=== PATIENT | male | born 1980 | race Caucasian/White ===

== ENCOUNTER 2016-10-15 13:49 | Inpatient (IN) | payer OTHER ==
[~2016-10-15] VITALS: Ht 165.1 cm; Wt 72.6 kg
--- NOTE | 2016-10-15 23:10 | NUR ---
Pre-Admission Note: Patient assessed in intake office at 23:10 on 10/15/2016. Patient is ambulatory with steady gait, stable, A&OX4, speech is clear. Patient states that he is here to safely detox from ETOH. Pt reports drinking on a daily basis for over one year, and for the past 3 months has been drinking 12-16 beers daily. Patient states that last drink was 8 beers on 10/14/16. VS: 179/100, 70, 98.1, 16, 98% Spo2 on RA. Patient reports and rates pain /10. Patient reports allergy to PCN. Patient instructed on unit protocol of vitals Q4H and COWS/CIWA assessments. Patient verbalized understanding and agreement. Patient also instructed on policy regarding destruction of any controlled substances/prescriptions brought to facility, and handling of all medications. Patient verbalized understanding and agreement. Will complete admission assessment when patient is brought up to unit.
--- NOTE | 2016-10-15 23:20 | NUR ---
ADMISSION NOTE: NEW ADMISSION IS A 36 YO MALE ON THE [facility] FLOOR AT 23:20 ON 10/15/16; PRE-ADMISSION ASSESSMENT COMPLETED IN INTAKE OFFICE. UDS SPECIMEN COLLECTED IN INTAKE, RESULTED NEGATIVE FOR ALL SUBSTANCES. VS: 179/10, 70, 98.1, 16, 98% SPO2 ON RA. COWS IS 15: TREMOR, DIAPHORESIS, ANXIETY, TACTILE DISTURBANCES, SENSITIVITY TO LIGHT. HEIGHT IS 5'5" AND WEIGHT BY STANDING SCALE IS 160 LBS. PT REPORTS ALLERGY TO PCN AND NKFA. PT REPORTS PCP IS DR GUPTA IN [place], [place]. PT ADMITTED UNDER THE CARE OF DR KIMBLE. PT REPORTS THE FOLLOWING SUBSTANCE USE: ETOH: PT REPORTS FIRST DRINKING AT AGE 17, AND THEN DRINKING ON A DAILY BASIS FOR OVER ONE YEAR. FOR THE PAST 3 MONTHS, PT REPORTS DRINKING 12-16 BEERS DAILY. PT REPORTS SMOKING 20 CIGARETTES DAILY. WRITTEN SMOKING CESSATION EDUCATION PROVIDED. PT VERBALIZES UNDERSTANDING. PT DENIES ADMISSION TO TREATMENT/DETOX IN THE PAST. PT REPORTS PMHX OF ANXIETY, INSOMNIA, SPONTANEOUS PNEUMOTHORAX (1999), JAW FX WITH HARDWARE/SURGICAL REPAIR AND CLAVICLE FX (2009). PT DENIES TAKING HOME MEDICATIONS. PT IS AMBULATORY WITH STEADY GAIT. A&OX4. SKIN ASSESSMENT: INTACT. PT DENIES CURRENT OR HX OF SI/HI. LUNGS ARE CTA THROUGHOUT, RESPIRATIONS ARE EVEN AND UNLABORED. PT DENIES COUGH; LUNGS CTA. HEART SOUNDS REGULAR. BOWEL SOUNDS ACTIVE IN ALL QUADRANTS; PT REPORTS DIARRHEA. ABDOMEN IS SOFT, NON-DISTENDED, NON-TENDER.
[2016-10-15 23:23] LABS: *AMPHETAMINE, URINE NEGATIVE (NEGATIVE); *BARBITURATE, URINE NEGATIVE (NEGATIVE); *CANNABINOID, URINE NEGATIVE (NEGATIVE); *COCCAINE, URINE NEGATIVE (NEGATIVE); *OPIATE, URINE NEGATIVE (NEGATIVE); *PHENCYCLIDINE SCREEN,URINE NEGATIVE (NEGATIVE)
[2016-10-15 23:30] VITALS: BP 179/100
[2016-10-15] MEDS ORDERED: DICYCLOMINE HCL 20 MG TABLET PO PRN (23:30)
[2016-10-15] MEDS ORDERED: MAG HYDROX/AL HYDROX/SIMETH 30 ML LIQUID UDC PO PRN (23:30)
[2016-10-15] MEDS ORDERED: THIAMINE HCL 200 MG/2 ML VIAL IM ONE (23:30)
[2016-10-15] MEDS ORDERED: LORAZEPAM 1 MG TABLET PO PRN (23:30)
[2016-10-15] MEDS ORDERED: LORAZEPAM 2 MG/1 ML VIAL IM PRN (23:30)
[2016-10-15] MEDS ORDERED: MAGNESIUM HYDROXIDE 30 ML LIQUID UDC PO PRN (23:30)
[2016-10-15] MEDS ORDERED: ONDANSETRON ODT 4 MG TAB.RAPDIS SL PRN (23:30)
[2016-10-15] MEDS ORDERED: MIRALAX 17 GM POWD.PACK PO PRN (23:30)
[2016-10-15] MEDS ORDERED: LOPERAMIDE HCL 2 MG CAPSULE PO PRN ×2 (23:30)
[2016-10-16] VITALS: BP 119/72
[2016-10-16] MEDS: LORAZEPAM 1 MG TABLET PO PRN ×2 (00:03→10:06)
--- NOTE | 2016-10-16 00:03 | NUR ---
PRN's Ativan, Motrin, Imodium, Clonidine: Patient reports headache, tremor, anxiety, agitation, tactile disturbances, sensitivity to light, diaphoresis. CIWA is 15. Administered PRN Ativan 1mg as ordered according to CIWA score. Patient complains of headache and rates pain 7/10. Administered PRN Motrin as ordered. Patient reports multiple episodes of diarrhea. Administered PRN Imodium 4mg as ordered. Patient reports anxiety and BP elevated at 179/100. Administered PRN Clonidine as ordered. Will continue to monitor.
[2016-10-16] MEDS: CLONIDINE HCL 0.1 MG TABLET PO PRN (00:05)
[2016-10-16] MEDS: IBUPROFEN 400 MG TABLET PO PRN (00:05)
[2016-10-16] MEDS ORDERED: THIAMINE HCL 200 MG/2 ML VIAL ONE (00:07)
[2016-10-16] MEDS ORDERED: LORAZEPAM 1 MG TABLET ONE (00:08)
[2016-10-16] MEDS ORDERED: CLONIDINE HCL 0.1 MG TABLET ONE (00:08)
[2016-10-16] MEDS ORDERED: LOPERAMIDE HCL 2 MG CAPSULE ONE (00:09)
[2016-10-16] MEDS ORDERED: IBUPROFEN 400 MG TABLET ONE (00:09)
[2016-10-16 00:16] LABS: BASOPHILS # (AUTO) 0.1 K/uL (0.0-8.0); BASOPHILS % (AUTO) 0.6 % (0.0-2.0); EOSINOPHILS # (AUTO) 0.4 K/uL (0.0-0.7); EOSINOPHILS % (AUTO) 3.7 % (0.0-7.0); HEMATOCRIT 45.2 % (40-50); HEMOGLOBIN 15.5 G/DL (14.0-18.0); LYMPHOCYTES % (AUTO) 28.1 % (20.5-51.5); MEAN CORPUSCULAR HEMOGLOBIN 32.3 UUG (27.0-31.0); MEAN CORPUSCULAR HGB CONC 34 g/dL (32.0-37.0); MEAN CORPUSCULAR VOLUME 93.8 FL (82.0-92.0); MONOCYTES # (AUTO) 0.9 K/UL (0.1-1.30); MONOCYTES % (AUTO) 8.8 % (0.0-11.0); NEUTROPHILS # (AUTO) 6.2 K/UL (1.8-8.9); NEUTROPHILS % (AUTO) 58.8 % (38.5-71.5); PLATELET COUNT (AUTO) 184 K/UL (150-450); RED BLOOD CELL COUNT(AUTO) 4.82 MIL/UL (4.7-6.1); WHITE BLOOD COUNT (AUTO) 10.6 K/UL (4.0-11.2)
[2016-10-16 00:22] LABS: ETHANOL < 3 MG/DL (0-0)
[2016-10-16 00:31] LABS: ALANINE AMINOTRANSFERASE 24 U/L (16-63); ALKALINE PHOSPHATASE 76 U/L (50-136); AMYLASE 38 U/L (25-115); ASPARTATE AMINOTRANSFERASE 18 U/L (15-37); BILIRUBIN,TOTAL 0.5 mg/dL (0.2-1.0); CARBON DIOXIDE 29 mmol/L (21-32); CHLORIDE 104 mmol/L (98-107); GLUCOSE 96 mg/dL (74-106); LIPASE 228 U/L (73-393); MAGNESIUM 1.8 mg/dL (1.8-2.4); POTASSIUM 3.5 mmol/L (3.5-5.1); TOTAL PROTEIN, SERUM 6.3 g/dL (6.4-8.2); UREA NITROGEN, BLOOD 10 mg/dL (7-18)
[2016-10-16 00:44] LABS: THYROID STIMULATING HORMONE 1.414 mIU/mL (0.358-3.740)
--- NOTE | 2016-10-16 01:00 | NUR ---
PRN Reassessment: Patient reports decrease in anxiety, diaphoresis, tremor, headache. CIWA decreased from 15 to 6 one hour after PRN Ativan 1mg administration. Patient denies headache at this time. PRN Motrin effective. Patient denies any additional episodes of diarrhea. PRN Imodium effective. BP decreased from 179/100 to 119/72 one hour after PRN Clonidine administration.
[2016-10-16 04:00] VITALS: BP 97/64
--- NOTE | 2016-10-16 04:00 | NUR ---
CIWA Deferred: CIWA assessment deferred for sleep. V/S stable. All safety precautions are in place. Will continue to monitor. Addendum: 10/16/16 at 0523 by SKYLAR CHAO RN Amended: Links added.
--- NOTE | 2016-10-16 06:52 | NUR ---
End of Shift Note: Pt is a 36yo male admitted to [facility] on 10/15/16 for medically-supervised withdrawal from ETOH. Pt reports PMHx: anxiety, insomnia, spontaneous pneumothorax (1999), jaw and clavicle fx (2009). Pt reports allergy to PCN. Pt is full code status. Pt is on a regular diet. Pt reports drinking 12-16 beers daily for 3 months. PRN Ativan was given for CIWA=15, which was effective. Last CIWA=6 at 01:00. PRN Motrin was given for headache, PRN Clonidine for BP 179/100, and PRN Imodium was given for diarrhea. Total fluid intake this shift: 120 ml; output: urine x 1 and BM x 0. Pt is currently in bed and slept 5 hours this shift. All needs have been attended and met. Pt endorsed to day shift nurse.
--- NOTE | 2016-10-16 07:18 | NUR ---
Start Of Shift Report received. Pt is a 36yo male admitted to [facility] on 10/15/16 for medically-supervised withdrawal from ETOH. Pt continue to be on fall and seizure precautions. Pt reports PMHx: anxiety, insomnia, spontaneous pneumothorax (1999), jaw and clavicle fx (2009). Pt reports allergy to PCN. Pt is currently not on a taper, pt has PRN medications in case of withdrawal symptoms. Pt received PRN Ativan 1mg, Imodium, Motrin, and Clonidine 0.1mg per shift boss nurse medications were effective. Pts last CIWA was a 6 taken at 0400. Pt slept a total of 5 hours. Skin intact. Safety measures in place, call light within reach, side rails up x2, bed locked and in low position. Will continue to monitor and provide care.
[2016-10-16 08:00] VITALS: BP 102/66
[2016-10-16] MEDS ORDERED: PNEUMOCOCCAL 23-VAL P-SAC VAC 0.5 ML VIAL IM ONE (09:00)
[2016-10-16] MEDS ORDERED: TUBERCULIN,PURIF.PROT.DERIV. 5 TU/0.1 ML TEST ID ONE (09:00)
[2016-10-16] MEDS: FOLIC ACID 1 MG TABLET PO SCH (10:06)
[2016-10-16] MEDS: MULTIVITAMINS,THERAPEUTIC TABLET PO SCH (10:06)
[2016-10-16] MEDS: HYDROXYZINE PAMOATE 25 MG CAPSULE PO PRN (10:06)
--- NOTE | 2016-10-16 10:06 | NUR ---
PRN MEDICATION Pt c/o Anxiety presented with agitation inability to sit still, dilated pupils, sweats, and restlessness, requested something for relief, non-pharmacological techniques interventions provided x3 and were not effective. CIWA score of 8 PRN Ativan 1mg and Vistaril administered. Pt educated pt about s/e of medication and when to contact nurse. all needs met, all safety measures in place, will continue to monitor.
[2016-10-16] MEDS: THIAMINE HCL 100 MG TABLET PO SCH (10:07)
--- NOTE | 2016-10-16 11:06 | NUR ---
PRN REASSESSMENT Upon reassessment medication was effective, pt no longer c/o anxiety CIWA 6. Pt is in stable condition all safety measures in place will continue to monitor.
[2016-10-16 12:00] VITALS: BP 116/79
[2016-10-16] MEDS: LORAZEPAM 1 MG TABLET PO SCH ×3 (13:30→20:46)
[2016-10-16] MEDS: GABAPENTIN 300 MG CAPSULE PO SCH (15:00)
[2016-10-16 16:00] VITALS: BP 114/75
--- NOTE | 2016-10-16 19:15 | NUR ---
START OF SHIFT Received 36 year old male patient admitted on 10/15/16 for ETOH dependency. Pt is full code with allergy to PCN. He reports a PMHx of anxiety, insomnia, spontaneous pneumothorax and(1999), jaw and clavicle surgical repair. Pt denies seizure history. He reports drinking 12-16 beers daily for 3 months. Last dose was 8 beers on 10/14/16. Pt placed on 5 day Ativan taper and tolerating well. Per endorsement, pt received PRN Vistaril. Pt is alert and oriented x4, breathing is even and unlabored, safety measures in place. Will continue to monitor.
--- NOTE | 2016-10-16 19:37 | NUR ---
End Of Shift Report given. Pt is a 36yo male admitted to [facility] on 10/15/16 for medically-supervised withdrawal from ETOH. Pt continue to be on fall and seizure precautions. Pt reports PMHx: anxiety, insomnia, spontaneous pneumothorax (1999), jaw and clavicle fx (2009). Pt reports allergy to PCN Pt is placed on a 5 day Ativan taper tolerating well, Pt received PPD on his right arm and PNA vaccine. Pt was Encourage fluids to facilitate detox process. Upon assessment patient presented with mild anxiety, and barely sweating with last CIWA score of: 5 @1600. Detox medication effective at reducing withdrawal symptoms. Patient encouraged to attend group therapies/sessions to learn new coping skills to recent relapse, patient denies SI/HI. Pt ate all meals total fluid intake was 2991ml with 3 void and 0 bowel movement, Pt received PRN Ativan 1 mg and Vistaril 50mg medication effective. Safety measures in place. Call light kept within reach. Patient endorsed to assembler 1st shift nurse, all pertinent information discussed.
[2016-10-16 20:00] VITALS: BP 130/81
[2016-10-16] MEDS ORDERED: GABAPENTIN 300 MG CAPSULE PO SCH (21:00)
[2016-10-17] VITALS: BP 122/80
--- NOTE | 2016-10-17 | NUR ---
CIWA DEFERRED CIWA deferred d/t order is Q4H while awake. Pt is lying in bed with eyes closed noted to be asleep. No facial grimacing noted. Breathing even and unlabored, respirations 16. Safety measures in place. Will continue to monitor.
[2016-10-17 04:00] VITALS: BP 105/62
--- NOTE | 2016-10-17 07:04 | NUR ---
END OF SHIFT Pt is a 36 year old male patient admitted on 10/15/16 for ETOH dependency. Pt is full code with allergy to PCN. He reports a PMHx of anxiety, insomnia, spontaneous pneumothorax and(1999), jaw and clavicle surgical repair. Pt denies seizure history. Pt continues on 5 day Ativan taper and tolerating well. He did not receive or request PRN medications during shift. He slept a total of 7 hrs, Intake:892 mL Void:x2 BM:0 CIWA:6. Pt remains alert and oriented x4, breathing is even and unlabored, safety measures in place. Will endorse to oncoming shift.
--- NOTE | 2016-10-17 07:50 | NUR ---
Start Of Shift - Report received. Senior Designer/Art Director encountered pt in his room resting and watching TV. Pt is calm and cooperative, stating, " I am doing OK." Pt is a 36yo male admitted to [facility] on 10/15/16 for medically-supervised withdrawal from ETOH. Pt continue to be on fall and seizure precautions. Pt reports PMHx: anxiety, insomnia, spontaneous pneumothorax (1999), jaw and clavicle fx (2009). Pt reports allergy to PCN. Pt is currently starting day 2 of a 5 day Ativan taper and has been tolerating well. Pt has PRN medications in case of withdrawal symptoms. Pt did not receive any PRN medication on NOC per reporting nurse. Pts last CIWA of6 was taken at 0400. Pt slept a total of 7 hours. Skin intact. Safety measures in place, call light within reach, side rails up x2, bed locked and in low position. Will continue to monitor and provide care.
[2016-10-17 08:13] VITALS: BP 140/70
--- NOTE | 2016-10-17 08:28 | NUR ---
PRN Medication Pt c/o headache of 8/10 and rates it severe, requesting something for relief. Pt was offered Tylenol or Motrin and pt requested the Motrin. PO Motrin, 400mg administered and video games storywriter provided all appropriate education; side effects and when to contact staff regarding s/e. All needs met with all safety measures in place. Will continue to monitor, support and encourage according to plan of care.
[2016-10-17] MEDS: IBUPROFEN 400 MG TABLET PO PRN ×2 (08:34→20:13)
[2016-10-17] MEDS: FOLIC ACID 1 MG TABLET PO SCH (08:35)
[2016-10-17] MEDS: THIAMINE HCL 100 MG TABLET PO SCH (08:35)
[2016-10-17] MEDS: LORAZEPAM 1 MG TABLET PO SCH ×3 (08:35→20:12)
[2016-10-17] MEDS: GABAPENTIN 300 MG CAPSULE PO SCH ×3 (08:35→20:13)
[2016-10-17] MEDS: MULTIVITAMINS,THERAPEUTIC TABLET PO SCH (08:35)
--- NOTE | 2016-10-17 09:28 | NUR ---
PRN Re-Assessment Pt states his pain currently 5/10 and, "tolerable." All needs met and safety precautions in place. Will continue to monitor, support and encourage according to plan of care.
[2016-10-17 12:03] VITALS: BP 133/84
--- NOTE | 2016-10-17 12:31 | NUR ---
PRN Medication Pt c/o severe nausea with no emesis reported. Pt asked for medication and was administered Zofran SL, pt tolerated well and was educated on s/e and when to alert nurse to possible s/s of reaction. All needs provided with safety measures in place. Will contineu to monitor, support and encourage according to plan of care.
--- NOTE | 2016-10-17 13:35 | NUR ---
PRN Reassessment Pt sitting in room eating when advertising copywriter entered room, states he feels much better after administration of Zofran. All needs met, safety precautions in place. Will continue to monitor, support and encourage according to plan of care.
[2016-10-17 14:06] LABS: HEPATITIS B SURFACE AG Negative (Negative)
[2016-10-17 16:51] VITALS: BP 144/96
--- NOTE | 2016-10-17 17:53 | NUR ---
Therapist advised client of group times, during assessment. Client stated he would go to the afternoon group. Client attended.
[2016-10-17] MEDS: CLONIDINE HCL 0.1 MG TABLET PO PRN (18:10)
--- NOTE | 2016-10-17 18:10 | NUR ---
PRN Administration Pt c/o headache, tooth and back pain of pain level 7/10. Pt also mentions anxiety, chills and slight agitation. All non-pharmacological, alleviating techniques discussed with pt and attempted x3 with no relief stated. Pt inquired of software writer as to what he could have to help with pain and anxiety. Active Directory Architect administered Tylenol, Clonidine and Vistaril, per PO route, after educating pt on s/e and s/s necessitating the need to alert staff. All needs met with safety precautions in place. Will continue to monitor, support and encourage according to plan of care.
[2016-10-17] MEDS: ACETAMINOPHEN 325 MG TABLET PO PRN ×2 (18:11→21:40)
[2016-10-17] MEDS: HYDROXYZINE PAMOATE 25 MG CAPSULE PO PRN (18:11)
--- NOTE | 2016-10-17 19:12 | NUR ---
PRN Re-Assessment Pt states, " I am feeling better." States pain is headache rates as a 5/10, with the toothache and back pain nearly subsided, 3/10. Pt is resting comfortably in his bed and denies any further complaints. All needs met with safety precautions in place. Will continue to monitor, support and encourage according to plan of care.
--- NOTE | 2016-10-17 19:14 | NUR ---
End Of Shift Report given. Pt is a 36yo male admitted to [facility] on 10/15/16 for medically-supervised withdrawal from ETOH. Pt continue to be on fall, universal and seizure precautions. Pt reports PMHx: anxiety, insomnia, spontaneous pneumothorax (1999), jaw and clavicle fx (2009). Pt reports allergy to PCN. Pt was placed on a 5 day Ativan taper and is tolerating well. Pt was encouraged to consume fluids to facilitate detox process. Upon assessment patient presented with mild anxiety, mild nausea and a headache, tooth pain and back pain, with last CIWA score of 5 recorded @1600. Detox medication effective at reducing withdrawal symptoms. Patient encouraged to attend group therapies/sessions to learn new coping skills to help prevent relapse, patient denies SI/HI. Pt consumed 100% of all meals with 1742 ml fluid intake and 4 voids with no reported BM. Pt received Motrin 400mg (AM) and Tylenol 650mg (PM) , for headache, tooth ache and back pain. Zofran 4mg, for nausea and Clonidine and Vistaril for chills, anxiety and agitation. All medications were effective for their intended purposes. Safety measures in place. Call light kept within reach. Patient endorsed to scene shifter nurse, with oncoming nurse confirming understanding of all pertinent information reported.
[2016-10-17 20:00] VITALS: BP 130/81
--- NOTE | 2016-10-17 20:00 | NUR ---
2000 Patient received awake, alert and sitting up on the side of his bed. Patient responds to nurse's greeting and introduction with, " Hi, oh you're my nurse tonight?" Patient's color is pink and his skin is warm, dry and intact. Patient is oriented to person, place, day, date, time and her personal situation. Patient states that he has just returned to his room from [facility] in recreation room. Patient states that he is eating his regular diet tray " pretty good" and taking fluids ad roz with no real gastric issues so far. Vital signs are: 97.5-77-16 130/81, CIWA 5. Patient offers no requests or c/o anything at this time. Patient is overall cooperative and verbally appropriate when interacting with nurse, though he is slightly flat, withdrawn in mood/affect. patient was admitted on 10/15/16 for Alcohol withdrawal and he is currently on a 5-Day Ativan medication taper, which he has been apparently tolerating well so far. Bed is locked and in lowest position, bed rails are up X 2 and call light within patient's easy reach.
[2016-10-17] MEDS: CLONIDINE HCL 0.1 MG TABLET PO SCH (20:13)
--- NOTE | 2016-10-17 20:13 | NUR ---
PRN MEDICATION: Prn Motrin 400 mg p.o. given for c/o toothache pain, 10/10 pain scale.
--- NOTE | 2016-10-17 21:13 | NUR ---
REASSESSMENT PRN MEDICATION: Patient states that his toothache is feeling "only a little better now", 7/10 pain scale.
--- NOTE | 2016-10-17 21:40 | NUR ---
PRN MEDICATION: Prn Tylenol 650 mg p.o. given for c/o " my toothache is still hurting" 8/10 pain scale.
[2016-10-17] MEDS: diphenhydrAMINE 50 MG CAPSULE PO PRN (21:43)
--- NOTE | 2016-10-17 21:43 | NUR ---
PRN MEDICATION: Prn Benadryl 50 mg p.o. given per request for sleep medication.
--- NOTE | 2016-10-17 22:43 | NUR ---
REASSESSMENT PRN MEDICATION: Patient is sleeping comfortably with eyes closed and respirations quiet, even, unlabored at 12.
[2016-10-18] VITALS: BP 121/79
[2016-10-18 04:00] VITALS: BP 123/78
--- NOTE | 2016-10-18 06:30 | NUR ---
0630 Patient slept a total of 5 hours and he had 2 voids and no stools. Total intake was 1,900 ml p.o. Prn medications given noted separately per floor protocol. V/SS afebrile, CIWA 3 at 0400. Patient is presently resting comfortably with eyes closed and respirations quiet, even, unlabored at 12. Patient is in stable condition at this time.
--- NOTE | 2016-10-18 07:50 | NUR ---
Start Of Shift Report received. Controller [employer] encountered pt in his room resting and watching TV. Pt is calm and cooperative, stating. Pt has c/o leg pain at 7/10, I was cramping last night. Pt is a 36yo male admitted to [facility] on 10/15/16 for medically-supervised withdrawal from ETOH. Pt continue to be on fall, universal and seizure precautions. Pt reports PMHx: anxiety, insomnia, spontaneous pneumothorax (1999), jaw and clavicle fx (2009). Pt reports allergy to PCN. Pt is currently starting day 3 of a 5 day Ativan taper and has been tolerating well. Pt has PRN medications in case of withdrawal symptoms. Pt received Motrin, Benadryl, and Tylenol on NOC per reporting nurse. Pts last CIWA o f 3 was taken at 0400. Pt slept a total of 5 hours. Skin intact. Safety measures in place, call light within reach, side rails up x2, bed locked and in low position. Will continue to monitor, support and encourage according to plan of care.
[2016-10-18 08:07] VITALS: BP 119/71
--- NOTE | 2016-10-18 08:36 | NUR ---
PRN Medication Pt c/o stomach cramps and pain 7/10 in legs, bi-lateral. Pt asks for pharmacological relief for both. Non-pharmacological inerventions attempted x3 with no relief, according to pt. Healthcare Translator educated pt on s/e and s/s of when to alert nursing. Healthcare Translator administered Bentyl for stomach cramps and Motrin for pain, per pt's request. All needs met with all safety precautions in place. Will continue to monitor, support and encourage according to plan of care.
[2016-10-18] MEDS: LORAZEPAM 1 MG TABLET PO SCH ×4 (08:39→21:31)
[2016-10-18] MEDS: IBUPROFEN 400 MG TABLET PO PRN ×2 (08:40→21:32)
[2016-10-18] MEDS: MULTIVITAMINS,THERAPEUTIC TABLET PO SCH (08:40)
[2016-10-18] MEDS: GABAPENTIN 300 MG CAPSULE PO SCH ×3 (08:40→21:31)
[2016-10-18] MEDS: FOLIC ACID 1 MG TABLET PO SCH (08:40)
[2016-10-18] MEDS: THIAMINE HCL 100 MG TABLET PO SCH (08:40)
--- NOTE | 2016-10-18 09:36 | NUR ---
PRN Re-Assessment Pt endorses relief from stomach cramps and an acceptable pain level of 4/10. Pt is resting comfortably watching TV. All needs met with all safety precautions in place.
[2016-10-18 12:53] VITALS: BP 116/80
[2016-10-18 17:09] VITALS: BP 132/87
--- NOTE | 2016-10-18 18:57 | NUR ---
End of Shift Report given. Pt is a 36yo male admitted to [facility] on 10/15/16 for medically-supervised withdrawal from ETOH. Pt continue to be on fall, universal and seizure precautions. Pt reports PMHx: anxiety, insomnia, spontaneous pneumothorax (1999), jaw and clavicle fx (2009). Pt reports allergy to PCN. Pt was placed on a 5 day Ativan taper and is tolerating well. Pt was encouraged to consume fluids to facilitate detox process. Upon assessment patient presented with mild anxiety, stomach cramps and bilateral leg pain. Pt was medicated with Bentyl and Motrin and endorsed relief on re-assessment. Pts last CIWA score of 2 recorded @1600. Detox medication effective at reducing withdrawal symptoms. Patient encouraged to attend group therapies/sessions to learn new coping skills to help prevent relapse, patient denies SI/HI. Pt consumed 100% of all meals with 2385 ml fluid intake and 3voids with 1 reported BM. Safety measures in place. Call light kept within reach. Patient endorsed to business development nurse, with oncoming nurse confirming understanding of all pertinent information reported.
[2016-10-18 20:00] VITALS: BP 120/82
--- NOTE | 2016-10-18 20:00 | NUR ---
1999 Patient received awake, alert and standing up sorting his clean clothes in his room's drawers. Upon seeing nurse, patient smiles and states, " Hi, how are you doing?" Patient's color is pink and his skin is warm, dry and intact. Patient is oriented to person, place, day, date, time and his personal situation. Patient states that he is still having a lot of toothache discomfort and he will be happy when his dental issue is resolved. Patient states that he is attending [facility] groups regularly and he is taking his regular diet trays well and also taking fluids ad roz, with no real gastric issues noted at this time. Vital signs are: 98.5-83-18 120/82, O2 Sat 98%, CIWA 1. Patient was admitted on 10/15/16 for Alcohol withdrawal and he is currently on a 5-Day Ativan medication taper, which he has been tolerating well apparently. Patient offers no requests or complaints at this time. Patient moves all his extremities fully WNL. Bed is locked and in lowest position, bed rails are up X 1 and call light within patient's easy reach.
[2016-10-18] MEDS: CLONIDINE HCL 0.1 MG TABLET PO SCH (21:31)
[2016-10-18] MEDS: diphenhydrAMINE 50 MG CAPSULE PO PRN (21:32)
--- NOTE | 2016-10-18 21:32 | NUR ---
PRN MEDICATIONS: Prn Benadryl 50 mg p.o. given per request for sleep medication and Prn Motrin 400 mg p.o. given for c/o toothache, 10/10 pain scale.
--- NOTE | 2016-10-18 22:32 | NUR ---
REASSESSMENT PRN MEDICATIONS: Patient is sleeping soundly with eyes closed and respirations quiet, even, unlabored at 12.
--- NOTE | 2016-10-19 | NUR ---
Patient refused to be awakened for V/S to be done at this time.
--- NOTE | 2016-10-19 04:00 | NUR ---
Patient refused to be awakened for V/S to be done at this time.
--- NOTE | 2016-10-19 06:30 | NUR ---
0630 Patient slept a total of 6 hours and he had 1 void and no stools. Total intake was 1,000 ml p.o. Prn medications given noted separately per floor protocol. V/SS afebrile, Last CIWA 2. Patient is friendly, cooperative and verbally appropriate when awake and interacting with nurse. Patient is presently sleeping soundly with eyes closed and respirations regular, unlabored at 12. Patient is in stable condition at this time.
[2016-10-19 08:00] VITALS: BP 130/88
--- NOTE | 2016-10-19 08:03 | NUR ---
START OF SHIFT NOTE Received report from night nurse, 36 year old male admitted for ETOH dependence. Pt continue to be on fall and seizure precautions. Pt reports PMH anxiety, insomnia, spontaneous pneumothorax (1999), jaw and clavicle fx (2009). Pt reports allergy to PCN. Pt cont on 5 days Ativan taper, Per endorsement pt was given PRN Benadryl/ Motrin effective per night nurse, Last CIWA-2, Slept for 6 hours. Patient received in room, awake alert and oriented x4, educated regarding plan of care and medication regimen for the day with good verbal understanding. Safety measures in place. call light kept with in reach, will continue to monitor.
[2016-10-19] MEDS: THIAMINE HCL 100 MG TABLET PO SCH (08:30)
[2016-10-19] MEDS: MULTIVITAMINS,THERAPEUTIC TABLET PO SCH (08:30)
[2016-10-19] MEDS: GABAPENTIN 300 MG CAPSULE PO SCH ×3 (08:30→20:45)
[2016-10-19] MEDS: FOLIC ACID 1 MG TABLET PO SCH (08:30)
[2016-10-19] MEDS: LORAZEPAM 1 MG TABLET PO SCH ×3 (08:30→20:45)
[2016-10-19 12:00] VITALS: BP 139/90
[2016-10-19] MEDS: ACETAMINOPHEN 325 MG TABLET PO PRN (14:01)
--- NOTE | 2016-10-19 14:01 | NUR ---
PRN TYLENOL Pt c/o headache 08/18. Medicated pt with PRN Tylenol as ordered. Will cont to monitor and reassess.
--- NOTE | 2016-10-19 15:01 | NUR ---
REASSESSMENT Pt reported medication effective headache decreased to 1/10. Will cont to monitor.
[2016-10-19 16:00] VITALS: BP 143/90
[2016-10-19] MEDS ORDERED: BENZOCAINE ORAL CARE 12 ML BOTTLE MM PRN (17:15)
--- NOTE | 2016-10-19 19:15 | NUR ---
START OF SHIFT Received 36 year old male patient admitted on 10/15/16 for ETOH dependency. Pt is full code with allergy to PCN. Pt reports a PMHx of anxiety, insomnia, spontaneous pneumothorax in 1999 and jaw and clavicle surgical repair. He reports drinking ETOH (beer) 12-16 beers daily for 19 years total but 3 months at current rate. Last dose was 8 beer son 10/14/16. Pt placed on 5 day Ativan taper and tolerating well. Per endorsement pt received PRN Tylenol at 1401. Pt is alert and oriented x4, breathing is even and unlabored. Safety measures in place. Will continue to monitor.
--- NOTE | 2016-10-19 19:31 | NUR ---
END OF SHIFT NOTE Gave report to night nurse, 36 year old male admitted for ETOH dependence. Pt continue to be on fall and seizure precautions. Pt reports PMH anxiety, insomnia, spontaneous pneumothorax (1999), jaw and clavicle fx (2009). Pt reports allergy to PCN. Pt cont on 5 days Ativan taper, During shift pt received PRN medication noted to be effective. Last CIWA-2. Patient encouraged to attend group therapies/sessions to learn new coping skills to prevent relapse. patient denies any SI/HI. safety measures in place. call light kept with in reach. patient endorsed to date night caregiver nurse, all pertinent information discussed. Pt endorsed to Night nurse in stable condition.
[2016-10-19 20:00] VITALS: BP 133/77
[2016-10-19] MEDS: IBUPROFEN 600 MG TABLET PO PRN (20:45)
[2016-10-19] MEDS: CLONIDINE HCL 0.1 MG TABLET PO SCH (20:46)
[2016-10-19] MEDS: diphenhydrAMINE 50 MG CAPSULE PO PRN (20:46)
--- NOTE | 2016-10-19 20:46 | NUR ---
PRN BENADRYL/MOTRIN Pt complains of headache 6/10 and inability to fall asleep. PRN Benadryl and Motrin administered as ordered. Breathing is even and unlabored, safety measures in place. Will monitor effectiveness of medications.
--- NOTE | 2016-10-19 21:46 | NUR ---
PRN BENADRYL/MOTRIN REASSESSMENT PRN medications effective. Pt is lying in bed with eyes closed noted to be asleep. Respiration 16, breathing even and unlabored. Safety measures in place. Will monitor.
--- NOTE | 2016-10-20 | NUR ---
VITALS/CIWA 0000 vitals were refused by pt. CIWA deferred d/t pt is lying in bed with eyes closed noted to be asleep. Respirations 16, breathing even and unlabored. Will continue to monitor.
--- NOTE | 2016-10-20 04:00 | NUR ---
VITALS/CIWA 0400 vitals were refused by pt. CIWA deferred d/t pt is lying in bed with eyes closed noted to be asleep. Respirations 16, breathing even and unlabored. Will continue to monitor.
--- NOTE | 2016-10-20 07:05 | NUR ---
END OF SHIFT Pt is a 36 year old male patient admitted on 10/15/16 for ETOH dependency. Pt is full code with allergy to PCN. Pt reports a PMHx of anxiety, insomnia, spontaneous pneumothorax in 1999 and jaw and clavicle surgical repair. Pt placed on 5 day Ativan taper started on 10/16/16. Pt on day 09/12 and tolerating well. At 2045 he received PRN Benadryl and Motrin. He slept a total of 8 hrs, Intake:500mL Void: x2 BM:0 CIWA:1. Pt remains alert and oriented x4, breathing is even and unlabored. Safety measures in place. Endorsed to oncoming shift.
[2016-10-20 08:00] VITALS: BP 148/98
--- NOTE | 2016-10-20 08:04 | NUR ---
START OF SHIFT NOTE Received report from night nurse, 36 year old male admitted for ETOH dependence. Pt continue to be on fall and seizure precautions. Pt reports PMH anxiety, insomnia, spontaneous pneumothorax (1999), jaw and clavicle fx (2009). Pt reports allergy to PCN. Pt cont on 5 days Ativan taper, Per endorsement pt was given PRN Benadryl/ Motrin effective per night nurse, Last CIWA-1, Slept for 8 hours. Patient received in room, awake alert and oriented x4, educated regarding plan of care and medication regimen for the day with good verbal understanding. Safety measures in place. call light kept with in reach, will continue to monitor.
[2016-10-20] MEDS: GABAPENTIN 300 MG CAPSULE PO SCH ×3 (08:16→21:01)
[2016-10-20] MEDS: FOLIC ACID 1 MG TABLET PO SCH (08:16)
[2016-10-20] MEDS: MULTIVITAMINS,THERAPEUTIC TABLET PO SCH (08:16)
[2016-10-20] MEDS: LORAZEPAM 1 MG TABLET PO SCH ×2 (08:16→21:02)
[2016-10-20] MEDS: THIAMINE HCL 100 MG TABLET PO SCH (08:16)
[2016-10-20 12:00] VITALS: BP 125/84
[2016-10-20] MEDS ORDERED: TRAZODONE 50 MG TABLET PO PRN (12:15)
[2016-10-20] MEDS: IBUPROFEN 600 MG TABLET PO PRN ×2 (14:13→21:02)
--- NOTE | 2016-10-20 14:13 | NUR ---
PRN MOTRIN Pt c/o headache 08/18. Medicated pt with PRN Motrin 600mg as ordered. Will cont to monitor and reassess.
--- NOTE | 2016-10-20 15:13 | NUR ---
REASSESSMENT Pt reports a medication effective headache decreased to 1/10. Will cont to monitor.
[2016-10-20 16:00] VITALS: BP 142/98
--- NOTE | 2016-10-20 19:07 | NUR ---
END OF SHIFT NOTE Gave report to night nurse, 36 year old male admitted for ETOH dependence. Pt continue to be on fall and seizure precautions. Pt reports PMH anxiety, insomnia, spontaneous pneumothorax (1999), jaw and clavicle fx (2009). Pt reports allergy to PCN. Pt cont on 5 days Ativan taper, During shift pt presented with headache and received PRN Motrin noted to be effective. Last CIWA-3. Patient encouraged to attend group therapies/sessions to learn new coping skills to prevent relapse. patient denies any SI/HI. safety measures in place. call light kept with in reach. patient endorsed to oss architect nurse, all pertinent information discussed. Pt endorsed to Night nurse in stable condition.
--- NOTE | 2016-10-20 19:15 | NUR ---
START OF SHIFT Received 36 year old male patient admitted on 10/15/16 for ETOH dependency. Pt is full code with allergy to PCN. Pt reports a PMHx of anxiety, insomnia, spontaneous pneumothorax in 1999 and jaw and clavicle surgical repair. He reports drinking ETOH (beer) 12-16 beers daily for 19 years total but 3 months at current rate. Last dose was 8 beer son 10/14/16. Pt continues on 5 day Ativan taper and tolerating well. Per endorsement pt received PRN Motrin. Pt is alert and oriented x4, breathing is even and unlabored. Safety measures in place. Will continue to monitor.
[2016-10-20 20:00] VITALS: BP 151/97
[2016-10-20] MEDS: diphenhydrAMINE 50 MG CAPSULE PO PRN (21:02)
[2016-10-20] MEDS: CLONIDINE HCL 0.1 MG TABLET PO SCH (21:02)
--- NOTE | 2016-10-20 21:02 | NUR ---
PRN MOTRIN/BENADRYL/ANBESOL Pt complains of headache and tooth pain 6/10. Pt also complains of inability to sleep. PRN Motrin, Benadryl and Anbesol administered as ordered. Breathing is even and unlabored, safety measures in place. Will continue to monitor effectiveness.
--- NOTE | 2016-10-20 22:02 | NUR ---
PRN MOTRIN/BENADRYL/ANBESOL REASSESSMENT PRN Motrin and Anbesol effective. Pt reports decrease in headache 3/10 and toothache 2/10. PRN Benadryl ineffective. Pt reports feeling somewhat drowsy but unable to fall asleep. Safety measures in place. Will continue to monitor.
--- NOTE | 2016-10-20 22:46 | NUR ---
PRN TRAZODONE Pt complains of inability to sleep. PRN Trazodone administered as ordered. Breathing is even and unlabored, safety measures in place. Will continue to monitor effectiveness.
--- NOTE | 2016-10-20 23:46 | NUR ---
PRN TRAZODONE REASSESSMENT PRN medication effective. Pt is lying in bed with eyes closed noted to be asleep. No facial grimacing. Respirations 16, breathing is even and unlabored. Safety measures in place. Will continue to monitor.
--- NOTE | 2016-10-21 07:16 | NUR ---
END OF SHIFT Pt is a 36 year old male patient admitted on 10/15/16 for ETOH dependency. Pt is full code with allergy to PCN. Pt reports a PMHx of anxiety, insomnia, spontaneous pneumothorax in 1999 and jaw and clavicle surgical repair. Pt continues on 5 day Ativan taper and tolerating well. At 2101 he received PRN Bendaryl, Motrin and Anbesol. Benadryl was not effective so at 224 he received PRN Trazodone. He slept a total of 6 hrs, Intake: 855mL, Void: x1, BM; 0, CIWA: 3. Pt is alert and oriented x4, breathing is even and unlabored. Safety measures in place. Endorsed to oncoming shift.
--- NOTE | 2016-10-21 07:46 | NUR ---
BEGINNING OF SHIFT Patient endorsement report received from hourly shift nurse, all pertinent information discussed. Patient is a 36 year old male admitted on 10/15/2016, Patient With ongoing 5 day Ativan taper as ordered. patient is scheduled to begin day 5 of taper. Patient with last ciwa score of: 3. Patient received PRN: Benadryl, Motrin, Anbesol. and trazodone, during hourly shift, medications were effective, patient slept for 6 hours. Patient received in room, awake alert and oriented x4, educated regarding plan of care and medication regimen for the day with good verbal understanding. Safety measures in place. call light kept with in reach, will continue to monitor closely.
[2016-10-21 08:41] VITALS: BP 133/72
[2016-10-21] MEDS: MULTIVITAMINS,THERAPEUTIC TABLET PO SCH (08:43)
[2016-10-21] MEDS: FOLIC ACID 1 MG TABLET PO SCH (08:43)
[2016-10-21] MEDS: GABAPENTIN 300 MG CAPSULE PO SCH ×3 (08:43→21:05)
[2016-10-21] MEDS: THIAMINE HCL 100 MG TABLET PO SCH (08:43)
[2016-10-21] MEDS: CLONIDINE HCL 0.1 MG TABLET PO SCH ×2 (08:44→21:05)
[2016-10-21 12:32] VITALS: BP 116/80
[2016-10-21 13:58] LABS: *AMPHETAMINE, URINE NEGATIVE (NEGATIVE); *BARBITURATE, URINE NEGATIVE (NEGATIVE); *CANNABINOID, URINE NEGATIVE (NEGATIVE); *COCCAINE, URINE NEGATIVE (NEGATIVE); *OPIATE, URINE NEGATIVE (NEGATIVE); *PHENCYCLIDINE SCREEN,URINE NEGATIVE (NEGATIVE)
[2016-10-21] MEDS: ACETAMINOPHEN 325 MG TABLET PO PRN (15:26)
[2016-10-21 17:58] VITALS: BP 128/75
--- NOTE | 2016-10-21 18:51 | NUR ---
END OF SHIFT Patient alert and oriented x4, vital signs were stable during shift. patient compliant with therapeutic plan of care. 0900 Assessment patient prsented with: Tremors taht can be felt but not seen, barely sweating, anxiety and mild agitation with ciwa score of: 6; 1300 assessment patient presented with: mild anxiety/mild agitation with ciwa score of: 2; 1700 assessment patient presented with: mild anxiety mild agitation with ciwa score of: 2. Patient is scheduled to be discharge tomorrow, urine drug screen completed. Patient noted self motivated towards sobriety. Patient received no PRN medications during shift. Patient encouraged to attend group therapies/sessions to learn new coping skills to prevent relapse. patient denies any SI/HI. safety measures in place. call light kept with in reach. patient endorsed to mail carriers supervisor nurse, all pertinent information discussed. will continue to monitor closely.
[2016-10-21 20:00] VITALS: BP 122/74
--- NOTE | 2016-10-21 20:00 | NUR ---
Start of Shift Patient is a 36-year old, male, admitted for ETOH Dependence. With PMHx of Anxiety, Insomnia, Spontaneous Pneumothorax (1999) and Jaw and Clavicle Fx with Surgical Repair (2009). Pt started on a 5-Day Ativan Taper on 10/16/2016 and finished. Pt tolerated taper well. Pt is AAOx4, no SOB nor anxiety noted at this time. Pt is ambulatory with steady gait with no skin issues. Fall, universal and safety prec in place. Call light within reach. No facial grimacing noted. Latest CIWA=1. Will continue to monitor.
[2016-10-21] MEDS ORDERED: DIPH50CA37 PO (20:18)
[2016-10-21] MEDS ORDERED: CLON0.1T14 PO (20:18)
[2016-10-21] MEDS ORDERED: HYDR-3895 PO (20:18)
[2016-10-21] MEDS ORDERED: GABA-534 PO (20:18)
[2016-10-21] MEDS ORDERED: IBUP-1955 PO (20:18)
[2016-10-22] VITALS: BP 120/75
[2016-10-22 04:00] VITALS: BP 127/84
--- NOTE | 2016-10-22 07:17 | NUR ---
End of Shift Patient is a 36-year old, male, admitted for ETOH Dependence. With PMHx of Anxiety, Insomnia, Spontaneous Pneumothorax (1999) and Jaw and Clavicle Fx with Surgical Repair (2009). Pt started on a 5-Day Ativan Taper on 10/16/2016 and finished. Pt tolerated taper well. Pt is AAOx4, no SOB nor anxiety noted at this time. Pt is ambulatory with steady gait with no skin issues. Fall, universal and safety prec in place. Call light within reach. No facial grimacing noted. Latest CIWA=1, slept for 3 hours. Will continue to monitor.
--- NOTE | 2016-10-22 07:30 | NUR ---
start of shift note: received pt from shift supervisor film processing nurse, pt is in stable condition at at this time no s/s of pain or discomfort. pt is admitted to [facility] for etoh withdrawal/dependence. pts last ciwa 1. pt is set to discharge today will assist pt in discharging and will continue to monitor pt for any changes.
[2016-10-22] MEDS: ACETAMINOPHEN 325 MG TABLET PO PRN (09:57)
[2016-10-22] MEDS: THIAMINE HCL 100 MG TABLET PO SCH (09:57)
[2016-10-22 09:58] VITALS: BP 121/68
[2016-10-22] MEDS: GABAPENTIN 300 MG CAPSULE PO SCH (09:58)
[2016-10-22] MEDS: FOLIC ACID 1 MG TABLET PO SCH (09:58)
[2016-10-22] MEDS: MULTIVITAMINS,THERAPEUTIC TABLET PO SCH (09:58)
[2016-10-22] MEDS: CLONIDINE HCL 0.1 MG TABLET PO SCH (09:58)
--- NOTE | 2016-10-22 10:08 | NUR ---
discharge note: pt left the unit in stable condition, no s/s of pain or discomfort or any withdrawal symptoms. pt teaching was administered and pt verbalized understanding. pt's V/S WNL. pt's personal belongings were returned. pt will be transferred to morning side via private car
== END 2016-10-22 10:08 | disposition home or self-care (01) | DRG 895 ==
LOC: SRC 22:27
PROVIDERS: ADMIT Internal Medicine; ATTEND Internal Medicine
PROC: HZ2ZZZZ Detoxification Services for Substance Abuse Treatment (ICD-10-PCS; principal; 2016-10-15)
PROC: HZ41ZZZ Group Counseling for Substance Abuse Treatment, Behavioral (ICD-10-PCS; 2016-10-17)
PROC: HZ31ZZZ Individual Counseling for Substance Abuse Treatment, Behavioral (ICD-10-PCS; 2016-10-17)
DX: F10.230 Alcohol dependence with withdrawal, uncomplicated (principal); Y90.0 Blood alcohol level of less than 20 mg/100 ml; Z81.1 Family history of alcohol abuse and dependence; Z86.79 Personal history of other diseases of the circulatory system; F17.210 Nicotine dependence, cigarettes, uncomplicated; I15.9 Secondary hypertension, unspecified; G47.00 Insomnia, unspecified; F41.9 Anxiety disorder, unspecified; D75.89 Other specified diseases of blood and blood-forming organs; K08.89 Other specified disorders of teeth and supporting structures; R00.0 Tachycardia, unspecified
CPT/HCPCS: 36415; 70030-TC; 80307; 83690; 83735; 84443; 85025; 86580; 86705; 87340; 90732; A9150; G0480; J3411; Q0162; Q0163